=== PATIENT | female | born 1975 | race Caucasian/White ===

== ENCOUNTER 2017-05-12 15:45 | Emergency (ER) | payer MEDICAID ==
[~2017-05-12] VITALS: Ht 162.6 cm; Wt 70.0 kg
[~2017-05-12 15:45] MED LIST: INSU3INS6 SQ
[2017-05-12 15:47] VITALS: BP 113/62
[2017-05-12] MEDS ORDERED: DEXTROSE 50% WATER 50ML SYRINGE IV ONE (16:20)
== END 2017-05-12 17:23 | disposition left against medical advice (07) ==
LOC: ER 15:45
DX: E11.649 Type 2 diabetes mellitus with hypoglycemia without coma (principal); I12.0 Hypertensive chronic kidney disease with stage 5 chronic kidney disease or end stage renal disease; E11.22 Type 2 diabetes mellitus with diabetic chronic kidney disease; N18.6 End stage renal disease; Z99.2 Dependence on renal dialysis; Z79.4 Long term (current) use of insulin
CPT/HCPCS: 82962; 99283

== ENCOUNTER 2020-05-22 06:09 | Emergency (ER) | payer MEDICAID ==
[~2020-05-22] VITALS: Ht 162.6 cm; Wt 82.0 kg
[2020-05-22 06:30] VITALS: BP 180/89
[2020-05-22] MEDS ORDERED: ACETAMINOPHEN WITH CODEINE 300/30MG TABLET PO ONE (06:45)
[2020-05-22 08:15] LABS: HEMOGLOBIN. 10.5 g/dL (12.0-16.0); MEAN CORPUSCULAR HEMOGLOBIN 32.9 pg (28.0-32.0); MEAN CORPUSCULAR VOLUME 100.8 fL (81.0-99.0); RED BLOOD CELL COUNT 3.18 mill/uL (4.2-5.4)
[2020-05-22 09:08] LABS: CHLORIDE 98 mEq/L (98-107)
[2020-05-22 09:11] LABS: HCG SCREEN NEGATIVE
[2020-05-22 09:30] LABS: PLATELET ESTIMATE NORMAL
[2020-05-22 09:35] LABS: PLATELET 173 x1000/uL (130-400)
== END 2020-05-22 07:42 | disposition left against medical advice (07) ==
LOC: ER 06:09
DX: S09.8XXA Other specified injuries of head, initial encounter (principal); E11.22 Type 2 diabetes mellitus with diabetic chronic kidney disease; I12.0 Hypertensive chronic kidney disease with stage 5 chronic kidney disease or end stage renal disease; N18.6 End stage renal disease; Z99.2 Dependence on renal dialysis; Z79.4 Long term (current) use of insulin; V43.52XA Car driver injured in collision with other type car in traffic accident, initial encounter; W22.11XA Striking against or struck by driver side automobile airbag, initial encounter; Y93.89 Activity, other specified; Y92.488 Other paved roadways as the place of occurrence of the external cause
CPT/HCPCS: 36415; 80053; 84484; 84703; 85025; 99283